=== PATIENT | male | born 1995 | race Caucasian/White ===

== ENCOUNTER 2020-02-12 12:58 | Emergency (ER) | payer SELFPAY ==
[2020-02-12] MEDS ORDERED: Ibuprofen 600 MG Tab PO ONE (13:49)
--- NOTE | 2020-02-12 13:49 | EDM.PDOC ---
ED HPI GENERAL MEDICAL PROBLEM - General Chief Complaint: Lower Extremity Injury/Pain Stated Complaint: CALF PAIN Time Seen by Provider: 02/12/20 13:35 Source of Information: Reports: Patient History Limitations: Reports: No Limitations - History of Present Illness INITIAL COMMENTS - FREE TEXT/NARRATIVE: 24-year-old male with left-sided calf pain off and on for years, at least 6 or 7 years. It tends to go away when he has been active or exercising, worse when he is resting or sitting for extended periods of time. No swelling or bruising. He was 17 years old when he started getting the symptoms, he is now 24. Onset: Unknown/Unsure Duration: Chronic (Symptoms have been present for 7 years) Location: Reports: Lower Extremity, Left Associated Symptoms: Reports: No Other Symptoms Left Lower Leg Pain Score (Numeric/FACES): 6 - Related Data Allergies Allergy/AdvReac Type Severity Reaction Status Date / Time No Known Allergies Allergy Verified 02/12/20 13:22 Home Meds: Home Meds Multivitamin with Minerals [Multiple Vitamin] 1 tab PO DAILY 02/12/20 [History] Past Medical History - Infectious Disease History Infectious Disease History: Reports: Chicken Pox Social & Family History - Tobacco Use Tobacco Use Status *Q: Never Tobacco User Second Hand Smoke Exposure: No - Caffeine Use Caffeine Use: Reports: Coffee, Tea - Recreational Drug Use Recreational Drug Use: No Review of Systems - Review of Systems Review Of Systems: See Below Constitutional: Denies: Fever Respiratory: Denies: Shortness of Breath Cardiovascular: Denies: Chest Pain GI/Abdominal: Denies: Abdominal Pain Skin: Reports: No Symptoms. Denies: Bruising Neurological: Reports: No Symptoms. Denies: Paresthesia ED EXAM, GENERAL - Physical Exam Exam: See Below Exam Limited By: No Limitations General Appearance: Alert, No Apparent Distress Respiratory/Chest: No Respiratory Distress, Lungs Clear Cardiovascular: Regular Rate, Rhythm Extremities: Other (Exam of the lower extremities shows complete symmetry, no swelling of the left leg compared to the right, no pitting edema, no pain with palpation of the popliteal areas. I cannot reproduce pain with palpation of the gastrocnemius) Course - Vital Signs Last Recorded V/S: Last Vital Signs Temp 95.9 F L 02/12/20 13:27 Pulse 101 H 02/12/20 13:27 Resp 16 02/12/20 13:27 BP 128/85 02/12/20 13:27 Pulse Ox 97 02/12/20 13:27 - Orders/Labs/Meds Orders: Active Orders 24 hr Category Date Time Status Tibia Fibula Lt [CR] Stat Exams 02/12/20 13:48 Taken Meds: Medications Discontinued Medications Generic Name Dose Route Start Last Admin Trade Name Roberto PRN Reason Stop Dose Admin Ibuprofen 600 mg 02/12/20 13:49 02/12/20 13:52 Motrin PO 02/12/20 13:50 600 mg ONETIME ONE Administration - Re-Assessments/Exams Free Text/Narrative Re-Assessment/Exam: 02/12/20 16:42 A tib-fib x-ray was done of the left lower extremity which is completely normal. I think this patient has a chronic tendinitis or myalgia and he was given 600 mg of ibuprofen, encouraged to stay active and recheck with orthopedics as an MRI may be helpful if symptoms are persistent. Departure - Departure Time of Disposition: 14:22 Disposition: Home, Self-Care 01 Clinical Impression: Pain of left calf - Discharge Information Instructions: Pain Without a Known Cause Referrals: PCP,None [Primary Care Provider] - Forms: ED Department Discharge Care Plan Goals: Continue activity as tolerated, consider an ibuprofen or naproxen prior to travel or extended rest. Recheck with orthopedics either at the hospital with Dr. Cason, or at the clinic for further evaluation if necessary. Sepsis Event Note (ED) - Evaluation Sepsis Screening Result: No Definite Risk - Focused Exam Vital Signs: Vital Signs Temp Pulse Resp BP Pulse Ox 02/12/20 13:27 95.9 F L 101 H 16 128/85 97 02/12/20 13:15 95.9 F L 101 H 16 128/85 97 - My Orders Last 24 Hours: My Active Orders 02/12/20 13:48 Tibia Fibula Lt [CR] Stat - Assessment/Plan Last 24 Hours: My Active Orders 02/12/20 13:48 Tibia Fibula Lt [CR] Stat
--- NOTE | 2020-02-13 10:27 | CR ---
Tibia Fibula Lt CLINICAL HISTORY: Posterior calf pain FINDINGS: Two views show no evidence of fracture or bone destruction. No soft tissue abnormality is seen. Impression: Negative
== END 2020-02-12 14:22 | disposition home or self-care (01) ==
LOC: JP.ED 12:58
DX: M79.662 Pain in left lower leg (principal)
CPT/HCPCS: 73590; 99283; A9270

== ENCOUNTER 2020-02-24 11:50 | Emergency (ER) | payer SELFPAY ==
--- NOTE | 2020-02-24 13:20 | CR ---
CHEST: Portable 02/24/2020 at 12:56 PM CLINICAL HISTORY:Chest pain COMPARISON:None FINDINGS: The heart size, pulmonary vascularity and hilar structures are normal. No infiltrate effusion or pneumothorax is seen. IMPRESSION: No acute cardiopulmonary process.
--- NOTE | 2020-02-24 13:26 | EDM.PDOC ---
ED HPI GENERAL MEDICAL PROBLEM - General Chief Complaint: Respiratory Problem Stated Complaint: heavy chest left shoulder Time Seen by Provider: 02/24/20 13:10 Source of Information: Reports: Patient History Limitations: Reports: No Limitations - History of Present Illness INITIAL COMMENTS - FREE TEXT/NARRATIVE: This is a 24-year-old male presents with concerns of left-sided chest and shoulder pain. Your symptoms have been ongoing for approximately 1 month, worsening several days ago. Last week he did work extremely hard at the gym, lifting weights until failure. He reports the pain is in his left shoulder. It is an ache. It is worsened by moving his left arm. No associated shortness of breath or exertional symptoms. No cough. No fevers or chills. No lower extr emity pain or pain. No history of cardiac disease. No falls or trauma. - Related Data Allergies Allergy/AdvReac Type Severity Reaction Status Date / Time No Known Allergies Allergy Verified 02/24/20 12:10 Home Meds: Home Meds Multivitamin with Minerals [Multiple Vitamin] 1 tab PO DAILY 02/12/20 [History] Past Medical History - Past Health History Medical/Surgical History: Denies Medical/Surgical History - Infectious Disease History Infectious Disease History: Reports: Chicken Pox Social & Family History - Tobacco Use Tobacco Use Status *Q: Never Tobacco User - Caffeine Use Caffeine Use: Reports: Coffee, Tea ED ROS GENERAL - Review of Systems Review Of Systems: See Below Constitutional: Reports: No Symptoms HEENT: Reports: No Symptoms Respiratory: Reports: No Symptoms Cardiovascular: Reports: Chest Pain Endocrine: Reports: No Symptoms GI/Abdominal: Reports: No Symptoms : Reports: No Symptoms Musculoskeletal: Reports: Other (Shoulder pain) Skin: Reports: No Symptoms Neurological: Reports: No Symptoms Psychiatric: Reports: No Symptoms Hematologic/Lymphatic: Reports: No Symptoms Immunologic: Reports: No Symptoms ED EXAM, GENERAL - Physical Exam Exam: See Below Exam Limited By: No Limitations General Appearance: Alert, No Apparent Distress Ears: Normal External Exam Nose: Normal Inspection Throat/Mouth: Normal Inspection Head: Atraumatic, Normocephalic Neck: Normal Inspection Respiratory/Chest: No Respiratory Distress Cardiovascular: Tachycardia GI/Abdominal: Soft, Non-Tender Back Exam: Normal Inspection Extremities: Normal Inspection, Other (Full ROM of the left upper extremity. Strength is intact.) Neurological: Alert, Oriented Psychiatric: Normal Affect, Normal Mood Skin Exam: Warm, Dry Course - Vital Signs Last Recorded V/S: Last Vital Signs Temp 35.6 C L 02/24/20 12:20 Pulse 110 H 02/24/20 12:20 Resp 16 02/24/20 12:20 BP 139/86 02/24/20 12:20 Pulse Ox 97 02/24/20 12:20 - Orders/Labs/Meds Orders: Active Orders 24 hr Category Date Time Status EKG Documentation Completion [RC] ASDIRECTED Care 02/24/20 12:33 Active EKG 12 Lead [EK] Routine Ther 02/24/20 12:33 Ordered - Re-Assessments/Exams Free Text/Narrative Re-Assessment/Exam: 24-year-old male presents with concerns of left-sided shoulder pain. On exam noted to initially be mildly tachycardic. Full ROM of the left arm and sensation is intact in the extremity. Pain is very much related to movement of the left arm. History of recent weight lifting. This seems very much musculoskeletal in nature. EKG is nonischemic. Chest x-ray is unremarkable. Although tachycardic on presentation to the ED have low concern for PE. I think it safe to treat symptomatically with Tylenol ibuprofen, we discussed return to the ER should his symptoms worsen. Will follow up with his primary doctor as needed. 02/24/20 13:31 Departure - Departure Time of Disposition: 13:24 Disposition: Home, Self-Care 01 Clinical Impression: Left shoulder pain Qualifiers: Chronicity: acute Qualified Code(s): M25.512 - Pain in left shoulder - Discharge Information *PRESCRIPTION DRUG MONITORING PROGRAM REVIEWED*: No *COPY OF PRESCRIPTION DRUG MONITORING REPORT IN PATIENT LUCERO: No Instructions: Shoulder Pain Referrals: PCP,None [Primary Care Provider] - Forms: ED Department Discharge Additional Instructions: We suggest that you take tylenol and ibuprofen for the pain in your left shoulder, it sounds to be musculoskeletal in nature. If you develop significant worsening of symptoms and shortness of breath please return to the ER. Thank you for letting us to care for you today. Sepsis Event Note (ED) - Evaluation Sepsis Screening Result: No Definite Risk - Focused Exam Vital Signs: Vital Signs Temp Pulse Resp BP Pulse Ox 02/24/20 12:20 35.6 C L 110 H 16 139/86 97 02/24/20 12:04 35.6 C L 110 H 16 139/86 97 - My Orders Last 24 Hours: My Active Orders 02/24/20 12:33 EKG Documentation Completion [RC] ASDIRECTED EKG 12 Lead [EK] Routine - Assessment/Plan Last 24 Hours: My Active Orders 02/24/20 12:33 EKG Documentation Completion [RC] ASDIRECTED EKG 12 Lead [EK] Routine
== END 2020-02-24 14:51 | disposition home or self-care (01) ==
LOC: JP.ED 11:50
DX: M25.512 Pain in left shoulder (principal)
CPT/HCPCS: 71045; 71045-26; 93005; 93010; 99285-25

== ENCOUNTER 2020-03-01 20:03 | Emergency (ER) | payer SELFPAY ==
[2020-03-01] MEDS ORDERED: LORazepam 0.5 MG Tab PO ONE (21:52)
--- NOTE | 2020-03-01 22:01 | EDM.PDOC ---
ED HPI GENERAL MEDICAL PROBLEM - General Chief Complaint: Respiratory Problem Stated Complaint: SOB Time Seen by Provider: 03/01/20 20:08 Source of Information: Reports: Patient, RN History Limitations: Reports: No Limitations - History of Present Illness INITIAL COMMENTS - FREE TEXT/NARRATIVE: Chief complaint: shortness of breath This is a 24 year old male who reports has been healthy until about one week ago when he began to experience shortness of breath and cough. He reports report left sided head pain near temporal area. He is anxious by nature and began to think he was having a stroke. Then was worried about Covid because in the past two weeks he has been to [employer] in [place], [employer] and [employer]. Has been traveling alot. His is healthy. 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 receiving 3 vaccines for his Citizenship Physical Reports exercises daily, no smoking, no history of surgery or chronic illness. Onset: Gradual Onset Date: 02/23/20 Duration: Day(s):, Constant Location: Reports: Chest (shortness of breath with cough), Generalized (fatigue, anxiety) Severity: Mild Improves with: Reports: None Worsens with: Reports: None Associated Symptoms: Reports: Headaches, Shortness of Breath Left Temporal Head Pain Score (Numeric/FACES): 3 - Related Data Allergies Allergy/AdvReac Type Severity Reaction Status Date / Time No Known Allergies Allergy Verified 03/01/20 21:24 Home Meds: Home Meds Multivitamin with Minerals [Multiple Vitamin] 1 tab PO DAILY 02/12/20 [History] Past Medical History - Past Health History Medical/Surgical History: Denies Medical/Surgical History - Infectious Disease History Infectious Disease History: Reports: Chicken Pox Social & Family History - Tobacco Use Tobacco Use Status *Q: Never Tobacco User - Caffeine Use Caffeine Use: Reports: Coffee, Tea - Recreational Drug Use Recreational Drug Use: No - Living Situation & Occupation Living situation: Reports: Occupation: Employed (Lives with his and cats about 5 minutes from [place]. He is from [facility]) ED ROS GENERAL - Review of Systems Review Of Systems: See Below Constitutional: Reports: Malaise, Other (anxiety) HEENT: Reports: No Symptoms Respiratory: Reports: Shortness of Breath, Cough, Sputum (clear to yellow) Cardiovascular: Reports: No Symptoms Endocrine: Reports: No Symptoms GI/Abdominal: Reports: No Symptoms : Reports: No Symptoms Musculoskeletal: Reports: No Symptoms Skin: Reports: No Symptoms Neurological: Reports: Headache (left side headache) Psychiatric: Reports: Anxiety Hematologic/Lymphatic: Reports: No Symptoms Immunologic: Reports: Seasonal Allergy ED EXAM, GENERAL - Physical Exam Exam: See Below Exam Limited By: No Limitations General Appearance: Alert, WD/WN, No Apparent Distress Eye Exam: Bilateral Eye: EOMI, Normal Inspection, PERRL Ears: Normal External Exam, Normal Canal, Hearing Grossly Normal, Normal TMs Ear Exam: Bilateral Ear: Auricle Normal, Canal Normal, TM normal Nose: Normal Inspection, Normal Mucosa, No Blood Throat/Mouth: Normal Inspection, Normal Lips, Normal Teeth, Normal Gums, Normal Oropharynx, Normal Voice, No Airway Compromise Head: Atraumatic, Normocephalic Neck: Normal Inspection, Supple, Non-Tender, Full Range of Motion Respiratory/Chest: No Respiratory Distress, Lungs Clear, Normal Breath Sounds, No Accessory Muscle Use, Chest Non-Tender Cardiovascular: Normal Peripheral Pulses, Regular Rate, Rhythm, No Edema, No Gallop, No JVD, No Murmur, No Rub GI/Abdominal: Normal Bowel Sounds, Soft, Non-Tender, No Distention, No Abnormal Bruit (Male) Exam: Deferred Rectal (Males) Exam: Deferred Back Exam: Normal Inspection, Full Range of Motion, NT Extremities: Normal Inspection, Normal Range of Motion, Non-Tender, Normal Capillary Refill, No Pedal Edema Neurological: Alert, Oriented, CN II-XII Intact, Normal Cognition, Normal Gait, Normal Reflexes, No Motor/Sensory Deficits Psychiatric: Anxious Skin Exam: Warm, Dry, Intact, Normal Color, No Rash Lymphatic: No Adenopathy Course - Vital Signs Last Recorded V/S: Last Vital Signs Temp 36.7 C 03/01/20 21:32 Pulse 96 03/01/20 21:32 Resp 18 03/01/20 21:32 BP 150/89 H 03/01/20 21:32 Pulse Ox 95 03/01/20 21:32 - Orders/Labs/Meds Orders: Active Orders 24 hr Category Date Time Status CORONAVIRUS COVID-19, [facility] 03/01/20 21:52 Ordered Meds: Medications Discontinued Medications Generic Name Dose Route Start Last Admin Trade Name Freq PRN Reason Stop Dose Admin Lorazepam 0.5 mg 03/01/20 21:52 03/01/20 21:59 Ativan PO 03/01/20 21:53 0.5 mg ONETIME ONE Administration - Re-Assessments/Exams Free Text/Narrative Re-Assessment/Exam: 03/01/20 22:07 concerns related to possible Covid and his recent travels Concerns of anxiety/panic attacks - he never been diagnoses with panic or anxiety disorder discuss with Mr. Ordonez -Ativan 0.5 mg po once for panic and anxiety and monitor for atleast 30 minutes to 1 hours for results. -test for Covid, this will be a sent out test Mr. Ordonez agrees with plan of care. 03/01/20 22:21 - Mr. Ordonez reports symptoms have resolved with Ativan 0.5 mg. -will discharge to home with Ativan 0.5 mg po bid prn #10 -advised to follow up in Primary Care for recheck. Departure - Departure Time of Disposition: 22:25 Disposition: Home, Self-Care 01 Condition: Good Clinical Impression: Anxiety about health, Shortness of breath - Discharge Information *PRESCRIPTION DRUG MONITORING PROGRAM REVIEWED*: Not Applicable *COPY OF PRESCRIPTION DRUG MONITORING REPORT IN PATIENT LUCERO: Not Applicable Instructions: Shortness of Breath, Adult, [id number], Managing Anxiety, Adult Referrals: PCP,None [Primary Care Provider] - Forms: ED Department Discharge Care Plan Goals: Anxiety and panic -medication Ativan 1 mg tablet, take half a tablet two times a day as needed for anxiety #10 -schedule appointment with [facility] Covid exposure -Test done in ER with results expected in next 2 days -call ER for results. -continue to wear mask with frequent hand washing Return to ER for any increase pain, cough, shortness of breath, fever, chills, nausea, vomiting, diarrhea, rash or not improved. Sepsis Event Note (ED) - Evaluation Sepsis Screening Result: No Definite Risk - Focused Exam Vital Signs: Vital Signs Temp Pulse Resp BP Pulse Ox 03/01/20 21:32 36.7 C 96 18 150/89 H 95 - Problem List & Annotations (1) Anxiety about health SNOMED Code(s): 627333011 Code(s): F41.8 - OTHER SPECIFIED ANXIETY DISORDERS Status: Acute Priority: High Current Visit: Yes (2) Shortness of breath SNOMED Code(s): 744368024 Code(s): R06.02 - SHORTNESS OF BREATH Status: Acute Priority: Low Current Visit: Yes - Problem List Review Problem List Initiated/Reviewed/Updated: Yes - My Orders Last 24 Hours: My Active Orders 03/01/20 21:52 CORONAVIRUS COVID-19, [facility] Urgent - Assessment/Plan Last 24 Hours: My Active Orders 03/01/20 21:52 CORONAVIRUS COVID-19, [facility] Urgent Plan: Anxiety and panic -medication Ativan 1 mg tablet, take half a tablet two times a day as needed for anxiety #10 -schedule appointment with [facility] Covid exposure -Test done in ER with results expected in next 2 days -call ER for results. -continue to wear mask with frequent hand washing Return to ER for any increase pain, cough, shortness of breath, fever, chills, nausea, vomiting, diarrhea, rash or not improved.
== END 2020-03-01 22:37 | disposition home or self-care (01) ==
LOC: JP.ED 20:03
DX: F41.9 Anxiety disorder, unspecified (principal); Z20.828 Contact with and (suspected) exposure to other viral communicable diseases
CPT/HCPCS: 87635; 99283; A9270; U0002

== ENCOUNTER 2020-03-16 08:50 | Emergency (ER) | payer SELFPAY ==
--- NOTE | 2020-03-16 10:19 | EDM.PDOC ---
ED HPI GENERAL MEDICAL PROBLEM - General Chief Complaint: Lower Extremity Injury/Pain Stated Complaint: LEFT CALF PAIN Time Seen by Provider: 03/16/20 10:00 Source of Information: Reports: Patient, Family, RN History Limitations: Reports: No Limitations - History of Present Illness INITIAL COMMENTS - FREE TEXT/NARRATIVE: This 24-year-old male from the [place] presents today complaining of pain in his left calf. He is worried about a possible blood clot apparently as he says that a hurts more when he sitting down like driving to [employer] or flying on an airplane. He has had this pain in his calf intermittently apparently for months if not years. He has no family history of DVT or any real reason to expect blood clotting problem. He does a fair amount of exercise including high intensity aerobics and weightlifting for the last couple of months. He does not have pain in his legs or anywhere else when he is exercising. He also notes that he periodically gets a pressure feeling in his left anterior chest not related to exercise typically. No shortness of breath with it. No diaphoresis. He notes also that he gets muscle twitching in his muscles over his body from time to time for no explained reason. He is very anxious about the cause. He apparently was seen here in the emergency department couple weeks ago and had a work-up for shortness of breath that apparently was negative. - Related Data Allergies Allergy/AdvReac Type Severity Reaction Status Date / Time No Known Allergies Allergy Verified 03/16/20 09:20 Home Meds: Home Meds NK [No Known Home Meds] 03/16/20 [History] Past Medical History - Past Health History Medical/Surgical History: Denies Medical/Surgical History - Infectious Disease History Infectious Disease History: Reports: Chicken Pox Social & Family History - Tobacco Use Tobacco Use Status *Q: Never Tobacco User - Caffeine Use Caffeine Use: Reports: None - Recreational Drug Use Recreational Drug Use: No - Living Situation & Occupation Living situation: Reports: Occupation: Employed (Lives with his and cats about 5 minutes from [employer]. He is from [facility]) Review of Systems - Review of Systems Review Of Systems: See Below Constitutional: Reports: No Symptoms Eyes: Reports: No Symptoms Ears: Reports: No Symptoms Nose: Reports: No Symptoms Mouth/Throat: Reports: No Symptoms Respiratory: Reports: Other (History of shortness of breath but not now) Cardiovascular: Reports: Chest Pain (Describes anterior left chest pain from time to time but not at the moment. Currently not related to exercise) GI/Abdominal: Reports: No Symptoms Genitourinary: Reports: No Symptoms Musculoskeletal: Reports: Other (Notes pain in his left calf from time to time and also muscle twitching occasionally) Skin: Reports: No Symptoms Neurological: Reports: No Symptoms Psychiatric: Reports: Anxiety ED EXAM, GENERAL - Physical Exam Exam: See Below Exam Limited By: No Limitations General Appearance: Alert, WD/WN, No Apparent Distress, Anxious Ears: Normal External Exam Nose: Normal Inspection Throat/Mouth: Normal Inspection Head: Atraumatic, Normocephalic Neck: Normal Inspection, Supple, Non-Tender Respiratory/Chest: No Respiratory Distress, Lungs Clear, Normal Breath Sounds, No Accessory Muscle Use, Chest Non-Tender Cardiovascular: Normal Peripheral Pulses, Regular Rate, Rhythm, No Edema, No JVD, No Murmur GI/Abdominal: Normal Bowel Sounds, Soft, Non-Tender, No Organomegaly, No Distention Course - Vital Signs Text/Narrative:: 24-year-old male who appears to have prior visits for evaluation of chest pain shortness of breath and calf pain comes now for reevaluation of all these with great anxiety. At 11:08 AM his DVT ultrasound is negative for tach He is very anxious and will be given Ativan 1 mg by mouth His work-up today is completely negative. He is reassured and he does have an appointment with PMD this coming Thursday for reevaluation and a second opinion. He does agree to take his Ativan now that he is not going [place] the gun range [place] Last Recorded V/S: Last Vital Signs Temp 36.8 C 03/16/20 09:22 Pulse 83 03/16/20 11:13 Resp 16 03/16/20 11:13 BP 142/72 H 03/16/20 11:13 Pulse Ox 100 03/16/20 11:13 - Orders/Labs/Meds Orders: Active Orders 24 hr Category Date Time Status EKG Documentation Completion [RC] ASDIRECTED Care 03/16/20 10:35 Active EKG 12 Lead [EK] Stat Ther 03/16/20 10:33 Ordered Labs: Laboratory Tests 03/16/20 03/16/20 03/16/20 Range/Units 10:32 10:33 10:49 WBC 5.2 (4.5-11.0) K/uL RBC 4.97 (4.30-5.90) M/uL Hgb 14.0 (12.0-15.0) g/dL Hct 41.6 (40.0-54.0) % MCV 84 (80-98) fL MCH 28 (27-31) pg MCHC 34 (32-36) % Plt Count 227 (150-400) K/uL D-Dimer, Quantitative (0.0-500.0) ng/mL ABG Hemoglobin 14.4 (13.5-18.0) g/dL ABG Oxyhemoglobin 63.5 % ABG Carboxyhemoglobin 1.3 (0.0-1.6) % ABG Methemoglobin 0.8 % VBG pH 7.414 (7.350-7.450) VBG pCO2 40.6 mm/Hg VBG pO2 34.2 mm/Hg VBG HCO3 25.4 mmol/L VBG Total CO2 22.4 mmol/L VBG O2 Saturation 64.9 VBG O2 Content 12.9 %vol VBG Base Excess 1.3 mm/L O2 Delivery Device Room air Sodium 140 (140-148) mmol/L Potassium 4.0 (3.6-5.2) mmol/L Chloride 104 (100-108) mmol/L Carbon Dioxide 25 (21-32) mmol/L Anion Gap 11.4 (5.0-14.0) mmol/L BUN 9 (7-18) mg/dL Creatinine 1.0 (0.8-1.3) mg/dL Est Cr Clr Drug Dosing 113.91 mL/min Estimated GFR (MDRD) > 60 (>60) Glucose 104 (74-106) mg/dL Calcium 9.0 (8.5-10.1) mg/dL Total Bilirubin 0.5 (0.2-1.0) mg/dL AST 13 L (15-37) U/L ALT 26 (12-78) U/L Alkaline Phosphatase 52 (46-116) U/L Troponin I (0.000-0.056) ng/mL C-Reactive Protein < 0.05 (0.0-0.3) mg/dL NT-Pro-B Natriuret Pep 13 (5-125) pg/mL Total Protein 7.0 (6.4-8.2) g/dL Albumin 4.2 (3.4-5.0) g/dL Globulin 2.8 (2.3-3.5) g/dL Albumin/Globulin Ratio 1.5 (1.2-2.2) 03/16/20 03/16/20 Range/Units 10:49 10:49 WBC (4.5-11.0) K/uL RBC (4.30-5.90) M/uL Hgb (12.0-15.0) g/dL Hct (40.0-54.0) % MCV (80-98) fL MCH (27-31) pg MCHC (32-36) % Plt Count (150-400) K/uL D-Dimer, Quantitative 91.08 (0.0-500.0) ng/mL ABG Hemoglobin (13.5-18.0) g/dL ABG Oxyhemoglobin % ABG Carboxyhemoglobin (0.0-1.6) % ABG Methemoglobin % VBG pH (7.350-7.450) VBG pCO2 mm/Hg VBG pO2 mm/Hg VBG HCO3 mmol/L VBG Total CO2 mmol/L VBG O2 Saturation VBG O2 Content %vol VBG Base Excess mm/L O2 Delivery Device Sodium (140-148) mmol/L Potassium (3.6-5.2) mmol/L Chloride (100-108) mmol/L Carbon Dioxide (21-32) mmol/L Anion Gap (5.0-14.0) mmol/L BUN (7-18) mg/dL Creatinine (0.8-1.3) mg/dL Est Cr Clr Drug Dosing mL/min Estimated GFR (MDRD) (>60) Glucose (74-106) mg/dL Calcium (8.5-10.1) mg/dL Total Bilirubin (0.2-1.0) mg/dL AST (15-37) U/L ALT (12-78) U/L Alkaline Phosphatase (46-116) U/L Troponin I < 0.017 (0.000-0.056) ng/mL C-Reactive Protein (0.0-0.3) mg/dL NT-Pro-B Natriuret Pep (5-125) pg/mL Total Protein (6.4-8.2) g/dL Albumin (3.4-5.0) g/dL Globulin (2.3-3.5) g/dL Albumin/Globulin Ratio (1.2-2.2) Meds: Medications Discontinued Medications Generic Name Dose Route Start Last Admin Trade Name Freq PRN Reason Stop Dose Admin Lorazepam 1 mg 03/16/20 11:09 03/16/20 11:23 Ativan PO 03/16/20 11:10 Not Given ONETIME ONE Departure - Departure Time of Disposition: 13:14 Disposition: Home, Self-Care 01 Condition: Good Clinical Impression: Anxiety about health - Discharge Information Referrals: PCP,None [Primary Care Provider] - Forms: ED Department Discharge Sepsis Event Note (ED) - Evaluation Sepsis Screening Result: No Definite Risk - Focused Exam Vital Signs: Vital Signs Temp Pulse Resp BP Pulse Ox 03/16/20 11:13 83 16 142/72 H 100 03/16/20 09:22 36.8 C 103 H 16 138/77 97 03/16/20 09:13 36.8 C 103 H 16 138/77 97 - My Orders Last 24 Hours: My Active Orders 03/16/20 10:33 EKG 12 Lead [EK] Stat 03/16/20 10:35 EKG Documentation Completion [RC] ASDIRECTED - Assessment/Plan Last 24 Hours: My Active Orders 03/16/20 10:33 EKG 12 Lead [EK] Stat 03/16/20 10:35 EKG Documentation Completion [RC] ASDIRECTED
[2020-03-16] MEDS ORDERED: LORazepam 1 MG Tab PO ONE ×2 (11:09→13:20)
--- NOTE | 2020-03-16 11:38 | CRLUS ---
INDICATION: Periodic left calf pain. Muscle twitching. TECHNIQUE: Ultrasound venous duplex lower left extremity. Compression venous exam was performed using mari-scale, color Doppler, and spectral Doppler analysis. COMPARISON: None. FINDINGS: Sonographic imaging demonstrates the left common femoral, deep femoral, superficial femoral, popliteal, posterior tibial and greater saphenous and the contralateral right common femoral veins to be fully compressible with normal color Doppler blood flow. IMPRESSION: No sonographic evidence of left lower extremity DVT. Dictated by Nate Nieves MD @ Mar 16 2020 11:35AM Signed by Dr. Nate Nieves @ Mar 16 2020 11:36AM
== END 2020-03-16 13:34 | disposition home or self-care (01) ==
LOC: JP.ED 08:50
DX: F41.9 Anxiety disorder, unspecified (principal)
CPT/HCPCS: 36415; 80053; 82803; 83880; 84484; 85027; 85379; 86140; 93005; 93971; 99284; A9270